=== PATIENT | female | born 1940 | race Caucasian/White ===

== ENCOUNTER 2016-11-03 10:07 | Day surgery (SDC) | payer MEDICARE ==
[~2016-11-03] VITALS: Ht 152.4 cm; Wt 65.8 kg
[~2016-11-03 10:07] MED LIST: 0.9% Sodium Chloride 1,000 ML IV SCH; ASCO500C6 PO; ASPI-973 PO; CHOL200025 PO; CRAN300T PO; CYAN500 PO; CYCL1DRO OP; ESTR0.5T PO; ESTR10TA4 VAGINAL; IBUP200C PO; LACT1CAP73 PO; LEVO88TA4 PO; MULT1CAP33 PO; OM-31CAP9 PO; Sodium Chloride LOK Flush 10 mL Syringe IV PRN; TURM500C7 PO; UBID300C PO; VITA200C21 PO; fentaNYL-PF 50 mCg/mL 2 mL Inj IVPUSH PRN
[2016-11-03 10:20] VITALS: BP 166/65; PULSE 68; RESP 14; O2SAT 100
[2016-11-03 11:19] VITALS: BP 131/72; PULSE 60; RESP 16; O2SAT 99
[2016-11-03 11:29] VITALS: BP 139/58; PULSE 70; RESP 16; O2SAT 99
[2016-11-03 11:35] VITALS: BP 135/65; PULSE 64; RESP 16; O2SAT 99
--- NOTE | 2016-11-03 13:19 | ENDO ---
[address] [address] ENDOSCOPY PROCEDURE PATIENT: TONEY MARIE : 1940 MR#: [id number] ADMIT: 11/03/2016 JOB ID: [id number] DATE: 11/03/2016 PRIMARY PROVIDER: Gisela Cortez M.D. PROCEDURE: Colonoscopy with cold forceps polypectomy and random biopsies. INDICATIONS: A 76-year-old female who reports a change in bowel habit with a tendency to loose stools for the last six months. EQUIPMENT: [employer] H 180 AL. SEDATION: 1. 3 mg Versed. 2. 75 mcg fentanyl. COMPLICATIONS: None identified. BOWEL PREPARATION: Fair, adequate examination. PROCEDURAL INFORMATION: After the risks and benefits were explained, written and verbal informed consent was obtained. The patient was brought into the endoscopy suite and placed in the left lateral decubitus position. Sedation was achieved using the above-stated medications with the addition of oxygen via nasal cannula. A digital rectal examination was accomplished. No significant pathology apart from some mild internal hemorrhoids noted. The scope was introduced into the rectum and advanced under direct visualization to the level of the cecum, as identified by the appendiceal orifice and ileocecal valve. The terminal ileum was briefly accessed. The scope was then slowly withdrawn to carefully examine the mucosa for any defects or lesions. Multiple direct views were made through the dentate line for exclusion of pathology. The colon was decompressed. The scope removed from the patient who tolerated the procedure well. FINDINGS: No overt colitis seen throughout. There was a small focus of inflammation on one of the diverticula in the sigmoid colon. In the descending, there was a diminutive 3-4 mm polyp removed with cold forceps. Random colon biopsies were taken for exclusion of microscopic disease. The terminal ileum appeared visually normal. The examination to cecum was challenging requiring abdominal pressure. ENDOSCOPIC DIAGNOSES: 1. Diverticulosis left colon. 2. Diminutive colon polyp. 3. Mild hemorrhoids. RECOMMENDATIONS: 1. Await histopathology. 2. If the polyp is adenomatous, repeat colonoscopy five years.
--- NOTE | 2016-11-04 12:36 | PATH ---
SURGICAL PATHOLOGY Attending Physician:Benjy Pemberton CASE STATUS: Signed Out PATIENT NAME: TONEY MARIE PID: [id number] : 1940 DATE COLLECTED:11/03/2016 22:06 SPECIMEN: 1: Colon, Biopsy 2: Colon, Polyp CLINICAL HISTORY: 1). RANDOM COLON BIOPSY 2). DESCENDING POLYP X1 FINAL DIAGNOSIS: 1.RANDOM COLON BIOPSIES: FRAGMENTS OF NORMAL-APPEARING COLON MUCOSA. Negative for significant architectural distortion. Negative for significant inflammation, dysplasia and malignancy. 2.DESCENDING COLON POLYP: TUBULAR ADENOMA. ICD10 D12.4 GROSS DESCRIPTION: Two containers received in formalin. 1. Received in formalin, labeled with the patient' s name and "random", are three fragments of horowitz, soft tissue measuring from 0.2 x 0.1 x 0.1 cm to 0.3 x 0.2 x 0.2 cm. The fragments are completely submitted in cassette 1A. 2. Received in formalin, labeled with the patient' s name and "descending", is one fragment of horowitz, soft tissue measuring 0.4 x 0.3 x 0.3 cm. The fragments are completely submitted in cassette 2A. [id number]) INTRAOP CONSULT DIAGNOSIS: MICRO DESCRIPTION: See diagnosis. ICD-9 CODES: CPT CODES: 1: 11645 2: 41183 Electronically Signed Out Madhu Terrell MD [facility] Pathology [facility] [address], [place] [address] Technical component performed at [facility], [facility] [address], [place], [address]
== END 2016-11-03 23:59 | disposition home or self-care (01) ==
LOC: END 10:07
PROVIDERS: ATTEND Internal Medicine Gastroenterology
DX: D12.4 Benign neoplasm of descending colon (principal); K57.30 Diverticulosis of large intestine without perforation or abscess without bleeding; K64.8 Other hemorrhoids; Z79.84 Long term (current) use of oral hypoglycemic drugs
CPT/HCPCS: 45380; 99153; G0500; J2250; J3010; J7030

== ENCOUNTER → 2017-01-01 | Day surgery (SDC) | payer MEDICARE ==
[2017-01-01] VITALS (8 sets, daily range): BP systolic 114–142; BP diastolic 52–75; PULSE 59–80; RESP 13–18; O2SAT 94–100
[~2017-01-01] VITALS: Ht 152.4 cm; Wt 65.8 kg
[~2017-01-01] MED LIST changes: -0.9% Sodium Chloride 1,000 ML IV SCH; +Atropine 0.4 mg/mL Inj IVPUSH PRN; +Botulinum Toxin Type-A 100 unit Inj XX ONE; +CALC500T9 PO; +DEXTROSE 5% IV ONE; +DOCO1CAP3 PO; +Dexamethasone 4 mg/mL Inj ONE; +EPHEDrine Sulfate 50 mg/mL Inj IVPUSH PRN; +GENTAMICIN IV ONE; +HYDROcodone-APAP 5-325 mg Tablet PO PRN; +Labetalol 5 mg/mL 20 mL Inj IV PRN; +Lactated Ringer's 1,000 ML IV SCH; +Lactated Ringer's 500 ML IV PRN; +MetoCLOpramide 5 mg/mL 2 mL Inj ONE; -OM-31CAP9 PO; +Ondansetron 2 mg/mL 2 mL Inj IVPUSH PRN; +Ondansetron 2 mg/mL 2 mL Inj ONE; +Ondansetron 8 mg ODT Tablet PO PRN; +Phenazopyridine 97.5 mg Tablet PO PRN; +Phenylephrine 10,000 mCg/mL Inj IVPUSH PRN; +Propofol 10,000 mCg/mL 20 mL Inj ONE; -Sodium Chloride LOK Flush 10 mL Syringe IV PRN; +fentaNYL-PF 50 mCg/mL 2 mL Inj ONE
[2017-01-01] MEDS: Lactated Ringer's 1,000 ML IV SCH ×3 (05:55→08:34)
--- NOTE | 2017-01-01 08:19 | PCM.HPANE ---
Patient Data Surgeon Admitting Provider: Attending Provider:Kacy Arellano MD Primary Care Physician:Gisela Cortez MD Other Provider:MichaelocCelina Anesthesia Reason for Visit Urinary Retention, Urge Incontinence Ht/WT & BMI Height (Feet): 5 Height (Inches): 0.00 Weight (Kilograms): 65.8 Body Mass Index 28.00 Allergies Coded Allergies: ciprofloxacin (Verified Allergy, Intermediate, vomiting, 12/30/16) gluten (Verified Allergy, Intermediate, diarrhea, bloating, 12/30/16) hydrocodone (Verified Allergy, Intermediate, vomiting, 12/30/16) Past Anesthesia History Anesthesia History: Denies:: Abnormal Airway, Anesthesia Reactions, Difficult Intubation, Fam Anesthesia Reaction, Fam Malignant Hypertherm, Malignant Hyperthermia Diabetes History Hx Diabetes?: No MRSA MRSA: No Medications Hypertension Medication: No Home Meds Incl Beta Papito: No Reported Medications Calcium Carbonate (Tums)500 Mg Tab.mqzd757 Mg PO PRN PRN relex 30 Days 01/01/17 Docosahexanoic Acid/Epa (Fish Oil Concentrate Softgel)1 Each Capsule1 Each PO DAILY 12/30/16 Estradiol (Yuvafem)10 Mcg Qbwkqd02 Mcg VAGINAL WEEKLY 11/02/16 Estradiol 0.5 Mg Tablet0.5 Mg PO DAILY 11/02/16 Aspirin 81 Mg Dfzyfx85 Mg PO DAILY Ref 0 11/02/16 Vitamin E Acetate (Vitamin E)200 Unit Jisbzos827 Unit PO 03/12/16 Cholecalciferol (Vitamin D3) (Vitamin D3)2,000 Unit Tablet2,000 Unit PO DAILY 03/12/16 Ascorbic Acid (Vitamin C)500 Mg Capsule.er500 Mg PO DAILY 03/12/16 Cyanocobalamin (Vitamin B12)500 Mcg Tablet1,000 Mcg PO DAILY 03/12/16 Turmeric Root Extract (Turmeric)500 Mg Qlplgxp083 Mg PO DAILY 03/12/16 Cyclosporine (Restasis)1 Each Droperette1 Each OP DAILY 03/12/16 Lactobacillus Combo No.11 (Probiotic)1 Each Cap.sprink1 Each PO DAILY 03/12/16 Multivitamin (Multivitamins)1 Each Capsule1 Each PO DAILY 03/12/16 Levothyroxine 88 Mcg Ghksjv08 Mcg PO DAILY Ref 0 03/12/16 Ibuprofen 200 Mg Xsjxpwd771 Mg PO QID PRN For Pain Ref 0 03/12/16 Cranberry Extract (Cranberry)300 Mg Flfwof027 Mg PO DAILY 03/12/16 Ubidecarenone (Co Q-10)300 Mg Wxhppgv511 Mg PO DAILY 03/12/16 Discontinued Reported Medications Om-3/Dha/Epa/Fish Oil/Vit D3 (Fish Oil + Vitamin D-3 Softgel)1 Each Capsule1 Each PO DAILY 03/12/16 History History of ENT Problems?: No HEENT History: Denies:: Abnormal Airway Cataracts Difficult Intubation Dysphagia Glaucoma Hearing Problem Sinus Problem TMJ Denture Type: None Teeth Condition: Within Normal Limits Hx of Heart Problems?: No Cardiovascular History: Denies:: AICD Abdominal Aortic Aneurism Atrial Fibrillation Cardiac Surgery Chest Pain Congestive Heart Failure Coronary Artery Disease Edema Heart Murmur Hypertension Irregular Heartbeat Pacemaker Peripheral Vascular Rheumatic Fever Thrombophlebitis Valvular Heart Disease Hx of Respiratory Problem?: No Respiratory History: Denies:: Asthma COPD Chest Surgery Cough Dyspnea Emphysema Hemoptysis Oxygen Administration Pneumonia Pulmonary Embolism Tuberculosis Use of C-PAP Machine Use of Inhalers / NEBS Hx Neurologic Problems?: No Neurological History: Denies:: Alzheimer's Disease CVA Dementia Dizziness Headaches Multiple Sclerosis Parkinson's Disease Peripheral Neuropathy Seizures TIA Hx of GI Problems?: Yes Gastrointestinal History: Denies:: Cirrhosis Diverticulitis Gall Bladder Disease Gastroesphageal Reflux Gastrointestinal Bleeding Heartburn Hepatitis Hiatal Hernia Liver Disease Rectal Bleeding Hx of Problems?: Yes Genitourinary History: Positive for:: Urinary Tract Infection Denies:: HX of Hemodialysis Kidney Stones HX of Peritoneal Dialysis: No Female Hx: Denies:: Currently (tubal ) Endometriosis Pelvic Inflammatory Problems with Breasts? Skin History: Denies:: History Skin Disorders? Pressure Ulcers Hx Musculoskeletal Problems?: No Musculoskeletal History: Denies:: Back Injury Degenerative Joint Fibromyalgia Joint Replacement Musculoskeletal Trauma Myasthenia Gravis Osteoarthritis Rheumatoid Arthritis Systemic Lupus Hx of Psycho/Social Problems?: No Psycho Social History: Denies:: Anxiety Bipolar Disorder Hx Depression Suicide Attempt Hx Surgeries?: Yes (BLADDER RESTRUCT X2, TUBAL) Hx Any Other Health Problems?: Yes Other History: Positive for:: Thyroid Disease (hypo) Denies:: Cancer Endocrine Disease Hospitalization History Blood Transfusions: Positive for:: Accept Blood Products? Denies:: Blood Transfuse Reaction Blood Transfusions Hx Diabetes: No Hx Alcohol Use: YesAlcoholic Drinks Per Day: one drink weeklyHx Substance Use : No Smoking Status: Never Smoker Have You Smoked inLast 12 mo: No Stop/Bang S-Snoring: Do You Snore Loudly: No T-Tired: feel tired, fatigued: No O-Obsered: Observed not breath: Yes P-Blood Pressure: treated: No B- Body Mass Index > 35 kg/m2: No A- Age over 50: Yes N- Neck Large Circumference: No G- Gender Male: No BLESSING Total Score: 2 Risk Assessment Category Category 1A: Patient has history of documented sleep apnea, and HAS NOT received any narcotic, sedative or anesthesia administration during this stay. Category 1B: Patient has history of documented sleep apnea, and HAS received any narcotic , sedative or anesthesia administration during this stay Category 2: Patient has SUSPECTED Obstructive Sleep Apnea, and HAS received any narcotic , sedative or anesthesia administration during this stay. Category 3: Patient has SUSPECTED Obstructive Sleep Apnea and HAS NOT received narcotic, sedative or anesthesia administration during this stay. Category 4: Outpatient in Procedural Areas with known sleep apnea or who screen positive for High Risk via the STOP/BANG questionnaire. Exam Exam Vital Signs Vital Signs Date Time Temp Pulse Resp B/P Pulse Ox O2 Delivery O2 Flow Rate FiO2 01/01/17 06:24 36.3 59 18 134/75 96 Room Air General Appearance: Alert, Oriented X3, Cooperative, No Acute Distress HEENT/AIRWAY: MP 2, Neck Movement (FROM), Mouth Opening (3 FBMO) Lungs: Clear to Auscultation, Normal Air Movement Heart: Exam Unremarkable, Regular Rate/Rhythm, No Murmurs/Rubs/Gallops Meds/Labs/Diagnostics Admission Meds Current Medications Lactated Ringer's (Lr) 1,000 ml @ 120 mls/hr Q8H20M IV Last administered on t 05:55; Start 01/01/17 at 05:00; Stop 01/01/17 at 13:19 Plan Impression Patient chart reviewed, patient interviewed and anesthestic plan with risks, benefits, and alternatives discussed, and informed consent obtained. NPO per Anesth. Guidelines: Yes ASA Physical Status: ASA2 Mod Systemic Disease Anesthetic Plan: GA Bene/Risks/Altern/Consents: Yes HP Complete Prior to Induction: Yes Quan Peñaloza MD Jan 01, 2017 06:59
--- NOTE | 2017-01-01 09:23 | PCM.ANEP1 ---
Post Anesthesia PACU Phase 1 Assessment Vital Signs Vital Signs Date Time Temp Pulse Resp B/P Pulse Ox O2 Delivery O2 Flow Rate FiO2 01/01/17 09:15 36.2 70 16 123/69 100 Room Air 01/01/17 09:03 36.0 64 15 121/52 95 Room Air 01/01/17 09:01 69 15 121/52 94 Room Air 01/01/17 08:50 36.1 61 13 120/65 100 Simple Mask 8 01/01/17 08:44 69 15 117/53 100 Simple Mask 8 01/01/17 08:40 80 13 114/61 99 Simple Mask 8 01/01/17 08:35 36.1 71 17 142/62 98 Simple Mask 8 01/01/17 06:24 36.3 59 18 134/75 96 Room Air Anesthetic Administered: GA Level of Alertness: Awake, talking ANTONIO's with Equal Strength: Yes Pain: No Nausea or Vomiting: No CV Function & Hydration Stable: Yes Airway Device: n/a Oxygen Delivery: Room Air Lungs: Clear to Auscultation, Normal Air Movement Dermatome Level: Full Sensation PACU Phase 2 Assessment Complications: No Follow up Care: N/A Patient Instructions Provided: N/A Quan Peñaloza MD Jan 01, 2017 09:23
--- NOTE | 2017-01-02 20:10 | OP ---
[address] [address] OPERATIVE REPORT PATIENT: TONEY MARIE : 1940 MR#: [id number] ADMIT: 01/01/2017 JOB ID: [id number] DATE OF SURGERY: 01/01/2017 SURGEON: Kacy Arellano MD. PROCEDURE: Cystoscopy with Botox injection for chemical denervation of bladder. ANESTHESIA: General. PREOPERATIVE DIAGNOSIS(ES): Neurogenic bladder, urgency, frequency, urge incontinence. POSTOPERATIVE DIAGNOSIS(ES): Neurogenic bladder, urgency, frequency, urge incontinence. INDICATIONS: The patient is a 76-year-old woman with longstanding history of severe urinary symptoms with history of bladder augmentation and persistent urinary urgency, frequency, treated periodically with Botox to alleviate her symptoms, with recurrence, desiring Botox once again. Risks, benefits were discussed with her, and she wished to proceed. PROCEDURE IN DETAIL: After appropriate informed consent was obtained, the patient was brought to the operating room. She had clean urine culture prior to the procedure. SCDs were placed. Adequate general anesthesia induced. She was carefully placed in dorsal lithotomy position. All pressure points were carefully padded. Cleaned, prepped, and draped in the usual sterile fashion. Rigid scope was introduced into her bladder which was surveyed systematically. Once again, we could see a trabeculated bladder which had been clamshellled and augmented with bowel segment. We used 300 units of Botox dissolved into 30 cc of normal saline sterile for injection and injected this in 1 mL increments, spread throughout the [place] bladder. There was minimal hematuria. Patient tolerated procedure well. What minimal bleeding there was, was irrigated out. At termination of the procedure, she was awakened, taken in stable condition to the postanesthesia care unit.
== END | disposition home or self-care (01) ==
LOC: SAS 05:48
PROVIDERS: ATTEND Urology
DX: N31.9 Neuromuscular dysfunction of bladder, unspecified (principal); N39.41 Urge incontinence; R33.9 Retention of urine, unspecified; R35.0 Frequency of micturition; R35.1 Nocturia; Z79.82 Long term (current) use of aspirin; Z79.890 Hormone replacement therapy; Z98.890 Other specified postprocedural states
CPT/HCPCS: 52287; J0585; J1100; J1580; J1885; J2405; J2704; J2765; J3010; J7120